=== PATIENT | female | born 1995 | race Caucasian/White ===

== ENCOUNTER → 2020-01-13 10:35 | Outpatient (CLI) | payer OTHER, SELFPAY ==
[2020-01-13 11:30] LABS: Hematocrit 42.1 % (36-46); Hemoglobin 14.2 g/dL (12.0-16.0); Mean Corpuscular HGB Conc 33.7 % (30-36); Mean Corpuscular Hemoglobin 28.5 PG (26-34); Mean Corpuscular Volume 84.6 fL (80-100); Platelet Count 306 X10^3/uL (150-400); Red Blood Cell Count 4.98 X10^6/uL (4.0-5.2); White Blood Cell Count 7.7 X10^3/uL (4.5-11.0)
[2020-01-13 11:54] LABS: Alanine Aminotransferase 30 IU/L (<35); Albumin 4.6 g/dL (3.5-5.0); Albumin Globulin Ratio 1.4 (1.0-2.8); Alkaline Phosphatase 72 U/L (38-126); Aspartate Aminotransferase 25 IU/L (14-36); Bilirubin Total 0.5 mg/dL (0.2-1.3); Blood Urea Nitrogen 6 mg/dL (7-17); Calcium 9.6 mg/dL (8.4-10.2); Carbon Dioxide 27 mmol/L (22-32); Chloride 104 mmol/L (98-107); Cholesterol 143 mg/dL (140-199); Estimated Glomerular Filt Rate > 60.0 mL/min (>60); Globulin 3.4 g/dL (1.7-4.1); Glucose 104 mg/dL (70-100); HDL Cholesterol 35 mg/dL (40-60); HEMOLYSIS < 15 (0-50); LDL Cholesterol Calculated 75 mg/dL (<100); Potassium 3.9 mmol/L (3.4-5.1); Sodium 137 mmol/L (137-145); Triglycerides 163 mg/dL (35-150)
[2020-01-13 12:24] LABS: TSH w/ Reflex to FT4 1.25 uIU/mL (0.47-4.68)
== END ==
PROVIDERS: PCP Registered Nurse Diabetes Educator; Referring Provider Registered Nurse Diabetes Educator; Visit Provider Registered Nurse Diabetes Educator
DX: E66.01 Morbid (severe) obesity due to excess calories (principal); F32.9 Major depressive disorder, single episode, unspecified; F41.9 Anxiety disorder, unspecified; F43.10 Post-traumatic stress disorder, unspecified; R03.0 Elevated blood-pressure reading, without diagnosis of hypertension
CPT/HCPCS: 36415; 80053; 80061; 84443; 85027

== ENCOUNTER → 2020-05-03 14:50 | Outpatient (CLI) | payer OTHER, SELFPAY ==
--- NOTE | 2020-05-03 14:52 | DI.RAD.S_ITS ---
PROCEDURE: XR ANKLE LT MIN 3V INDICATIONS: ankle pain TECHNIQUE: 3 views of the ankle were acquired. COMPARISON: None. FINDINGS: Bones: No fractures or dislocations. Ankle mortise is normally aligned. No suspicious bony lesions. Soft tissues: No tibiotalar joint effusion. Achilles tendon appears normal. IMPRESSION: No trauma found. Source of pain is not seen. Dictated by: Vald Horne M.D. on 05/03/2020 at 16:32 Approved by: Vlad Horne M.D. on 05/03/2020 at 16:33
== END ==
PROVIDERS: PCP Registered Nurse Diabetes Educator; Referring Provider Nurse Practitioner; Visit Provider Nurse Practitioner
DX: M25.572 Pain in left ankle and joints of left foot (principal)
CPT/HCPCS: 73610

== ENCOUNTER → 2020-05-26 08:56 | Outpatient (CLI) | payer OTHER, SELFPAY ==
[2020-05-26] MEDS: COVID-19 VACC, Ad26(JANSSEN)/PF 0.5 ML IM (09:10)
== END ==
PROVIDERS: PCP Registered Nurse Diabetes Educator; Visit Provider Internal Medicine
DX: Z23 Encounter for immunization (principal)
CPT/HCPCS: 0031A; 91303

== ENCOUNTER → 2020-09-22 10:47 | Outpatient (CLI) | payer OTHER, SELFPAY ==
--- NOTE | 2020-09-22 10:49 | DI.RAD.S_ITS ---
PROCEDURE: XR HAND RT MIN 3V INDICATIONS: right hand pain, 4th and 5th digit TECHNIQUE: 3 views of the hand(s) acquired. COMPARISON: None. FINDINGS: Bones: No fractures or dislocations. Carpal bones are normally aligned. No suspicious bony lesions. Soft tissues: No suspicious soft tissue calcifications. IMPRESSION: No acute osseous abnormality. Dictated by: Richy Hines M.D. on 09/22/2020 at 11:03 Approved by: Richy Hines M.D. on 09/22/2020 at 11:05
== END ==
PROVIDERS: PCP Registered Nurse Diabetes Educator; Referring Provider Physician Assistant; Visit Provider Physician Assistant
DX: M79.641 Pain in right hand (principal)
CPT/HCPCS: 73130

== ENCOUNTER → 2021-04-08 11:42 | Outpatient (CLI) | payer OTHER, SELFPAY ==
[2021-04-08 12:02] LABS: COVID19 -Nasal RAPID Negative (Negative)
== END ==
PROVIDERS: PCP Registered Nurse Diabetes Educator; Visit Provider Physician Assistant
DX: Z20.822 Contact with and (suspected) exposure to COVID-19 (principal)
CPT/HCPCS: 87635

== ENCOUNTER → 2022-02-14 18:12 | Outpatient (CLI) | payer OTHER, SELFPAY ==
[2022-02-14 19:33] LABS: Influenza A - CEPHEID Flu A NEGATIVE (NEGATIVE); Influenza B - CEPHEID Flu B NEGATIVE (NEGATIVE); Respiratory Syncytial Virus Negative (Negative)
[2022-02-14 20:03] LABS: COVID-19 CEPHEID 4-PLEX PCR POSITIVE (Negative)
== END ==
PROVIDERS: PCP Registered Nurse Diabetes Educator; Visit Provider Physician Assistant Medical
DX: R09.81 Nasal congestion (principal)
CPT/HCPCS: 0241U

== ENCOUNTER → 2022-11-07 12:00 | Outpatient (CLI) | payer OTHER, SELFPAY ==
[2022-11-07 12:34] LABS: Hematocrit 41.9 % (36-46); Hemoglobin 14.1 g/dL (12.0-16.0); Mean Corpuscular HGB Conc 33.7 % (30-36); Mean Corpuscular Hemoglobin 28.4 PG (26-34); Mean Corpuscular Volume 84.3 fL (80-100); Platelet Count 378 X10^3/uL (150-400); Red Blood Cell Count 4.97 X10^6/uL (4.0-5.2); Red Cell Distribution Width 13.4 % (11.6-14.8); White Blood Cell Count 9.2 X10^3/uL (4.5-11.0)
[2022-11-07 12:45] LABS: Hemoglobin A1C% w Est Avg Glu 5.5 % (4.0-6.0)
[2022-11-07 13:00] LABS: Alanine Aminotransferase 23 IU/L (<35); Albumin 4.3 g/dL (3.5-5.0); Albumin Globulin Ratio 1.2 (1.0-2.8); Alkaline Phosphatase 77 U/L (38-126); Aspartate Aminotransferase 21 IU/L (14-36); BUN Creatinine Ratio 12.1 (6-22); Bilirubin Total 0.5 mg/dL (0.2-1.3); Blood Urea Nitrogen 7 mg/dL (7-17); Calcium 9.5 mg/dL (8.4-10.2); Carbon Dioxide 27 mmol/L (22-32); Chloride 103 mmol/L (98-107); Cholesterol 192 mg/dL (140-199); Estimated Glomerular Filt Rate > 60 mL/min (>60); Globulin 3.5 g/dL (1.7-4.1); Glucose 104 mg/dL (70-100); HDL Cholesterol 35 mg/dL (40-60); HEMOLYSIS < 15 (0-50); LDL Cholesterol Calculated 108 mg/dL (<100); Potassium 4.5 mmol/L (3.4-5.1); Sodium 137 mmol/L (137-145); Total Protein 7.8 g/dL (6.3-8.2); Triglycerides 246 mg/dL (35-150)
[2022-11-07 13:16] LABS: Free T4, Direct Thyroxine 1.12 ng/dL (0.78-2.19)
[2022-11-07 13:30] LABS: Thyroid Stimulating Hormone 1.23 uIU/mL (0.47-4.68)
== END ==
PROVIDERS: PCP Registered Nurse Diabetes Educator; Referring Provider Registered Nurse Diabetes Educator; Visit Provider Registered Nurse Diabetes Educator
DX: E78.5 Hyperlipidemia, unspecified (principal); R73.01 Impaired fasting glucose; E66.01 Morbid (severe) obesity due to excess calories; E88.81 Metabolic syndrome and other insulin resistance; F32.9 Major depressive disorder, single episode, unspecified
CPT/HCPCS: 36415; 80053; 80061; 83036; 84439; 84443; 85027

== ENCOUNTER → 2023-01-16 10:54 | Outpatient (CLI) | payer OTHER, SELFPAY ==
--- NOTE | 2023-01-16 10:55 | DI.RAD.S_ITS ---
PROCEDURE: XR CHEST 2V INDICATIONS: cough >3wk concern for LLL PNA vs bronchitis TECHNIQUE: 2 views of the chest were acquired. COMPARISON: None. FINDINGS: Surgical changes and devices: None. Lungs and pleura: Lungs are clear. No pleural effusions or pneumothorax. Mediastinum: Mediastinal contours are normal. Heart size is normal. Bones and chest wall: No suspicious bony abnormalities. Soft tissues appear unremarkable. IMPRESSION: No acute cardiopulmonary abnormality is seen. Dictated by: Arik Luo M.D. on 01/16/2023 at 11:42 Approved by: Arik Lou M.D. on 01/16/2023 at 11:42
== END ==
PROVIDERS: PCP Registered Nurse Diabetes Educator; Referring Provider Student in an Organized Health Care Education/Training Program; Visit Provider Student in an Organized Health Care Education/Training Program
DX: R05.8 Other specified cough (principal)
CPT/HCPCS: 71046

== ENCOUNTER → 2023-03-16 13:04 | Outpatient (CLI) | payer OTHER, SELFPAY ==
--- NOTE | 2023-03-16 13:06 | DI.RAD.S_ITS ---
PROCEDURE: XR FOOT RT MIN 3V INDICATIONS: right foot pain over 4th/5th metatarsals TECHNIQUE: 3 views of the foot were acquired. COMPARISON: None. FINDINGS: Bones: No fractures or dislocations. No suspicious bony lesions. Soft tissues: No tibiotalar joint effusion. Achilles tendon appears normal. IMPRESSION: No acute bony abnormality. Dictated by: Vlad Horne M.D. on 03/16/2023 at 13:33 Approved by: Vlad Horne M.D. on 03/16/2023 at 13:33
== END ==
PROVIDERS: PCP Registered Nurse Diabetes Educator; Referring Provider Physician Assistant; Visit Provider Physician Assistant
DX: M79.671 Pain in right foot (principal)
CPT/HCPCS: 73630

== ENCOUNTER → 2023-07-11 16:03 | Outpatient (CLI) | payer OTHER, SELFPAY ==
--- NOTE | 2023-07-13 14:46 | DIET.OUTPTC ---
Dietary Outpatient Consultation Note Consultation Date: 07/11/2023 Assessment: 27 y F referred to dietitian for impaired fasting glucose, HLD, BMI 50.0-59.9, metabolic syndrome. Bonnie is wanting help with weight management for prevention of diabetes and heart health. Reports struggling with her relationship with food since middle school, has attempted different eating patterns before for weight loss, but difficulty to maintain them. 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 Her and get take out 3-5x/wk for dinner. She eats familiar foods and has difficulty trying new foods due to avoidance of certain texture of foods. Diet recall: Breakfast: Redbull with flavored syrup juice and bagel with butter from [employer] Lunch: often skips Dinner: takeout (ex- pizza) Sometimes snack: various items Beverages: has been keeping regular sodas in house she drinks -varied amount daily 1+ can, gets regular soda when getting takeout Drinks whole milk, multiple glasses at night - varies how many daily Various juices depending on grocery shopping purchases Ice water GI symptoms: Denies N/V/C, experiences soft or liquid stools with dairy and leafy greens and will have incidences of diarrhea monthly that she cannot correlate to a certain food. Acid reflux at night occasionally. Ht: 167.64 cm Wt: 166.072 kg BMI: 59.1 Weight hx: 05/02/23: 169.757 kg 01/16/23: 161.621 kg 08/23/22: 166.015 kg Lab Values: On 11/07/22; she is going to get updated labs before next visit A1c: 5.5% Glucose, fastin mg/dL T chol 192 LDL: 108 HDL 35 Nutrition Diagnosis: Excessive energy intake r/t energy dense over nutrient dense food selections as evidenced by diet recall with sugar sweetened beverages and takeout 3-5 x/wk Interventions: 1. MNT for impaired fasting glucose, HLD, weight management -including: balanced meals, lab value meanings, macros, and label reading Goals: 1. Eliminate sugar sweetened beverages (except redbull), juices, and reduce milk to 3 glasses in 1 day or less by asking to not buy soda or place soda in room, out of sight. Increase water intake by bringing hydroflask with ice water to work by setting on top of work purse. 2. Plan 1 meal a day/week of a simple recipe to try by planning and going grocery shopping on Sunday with Monitoring/Evaluations: goals, diet recall, f/u in 1 month Electronically Signed by: Lisa Andrew 07/13/23 14:46 Clinical Dietitian [address] [address]
== END ==
PROVIDERS: PCP Registered Nurse Diabetes Educator; Referring Provider Registered Nurse Diabetes Educator
DX: R73.01 Impaired fasting glucose (principal); E78.5 Hyperlipidemia, unspecified; E88.810 Metabolic syndrome; E88.818 Other insulin resistance; R03.0 Elevated blood-pressure reading, without diagnosis of hypertension; Z68.43 Body mass index [BMI] 50.0-59.9, adult; Z71.3 Dietary counseling and surveillance
CPT/HCPCS: 97802

== ENCOUNTER → 2023-10-10 11:55 | Outpatient (CLI) | payer OTHER, SELFPAY ==
[2023-10-10 13:12] LABS: Hematocrit 39.1 % (36-46); Hemoglobin 13.4 g/dL (12.0-16.0); Mean Corpuscular HGB Conc 34.3 % (30-36); Mean Corpuscular Hemoglobin 28.9 PG (26-34); Mean Corpuscular Volume 84.3 fL (80-100); Platelet Count 317 X10^3/uL (150-400); Red Blood Cell Count 4.64 X10^6/uL (4.0-5.2); Red Cell Distribution Width 13.1 % (11.6-14.8); White Blood Cell Count 7.8 X10^3/uL (4.5-11.0)
[2023-10-10 13:38] LABS: Alanine Aminotransferase 40 IU/L (<35); Albumin 4.3 g/dL (3.5-5.0); Albumin Globulin Ratio 1.5 (1.0-2.8); Alkaline Phosphatase 86 U/L (38-126); Aspartate Aminotransferase 33 IU/L (14-36); BUN Creatinine Ratio 12.7 (6-22); Bilirubin Total 0.4 mg/dL (0.2-1.3); Blood Urea Nitrogen 8 mg/dL (7-17); Calcium 9.1 mg/dL (8.4-10.2); Carbon Dioxide 25 mmol/L (22-32); Chloride 103 mmol/L (98-107); Cholesterol 191 mg/dL (140-199); Estimated Glomerular Filt Rate > 60 mL/min (>60); Globulin 2.8 g/dL (1.7-4.1); Glucose 120 mg/dL (70-100); HDL Cholesterol 38 mg/dL (40-60); HEMOLYSIS < 15 (0-50); LDL Cholesterol Calculated 113 mg/dL (<100); Potassium 4.4 mmol/L (3.4-5.1); Sodium 138 mmol/L (137-145); Total Protein 7.1 g/dL (6.3-8.2); Triglycerides 199 mg/dL (35-150)
[2023-10-10 13:45] LABS: Hemoglobin A1C% w Est Avg Glu 6.4 % (4.0-6.0)
[2023-10-10 14:01] LABS: TSH w/ Reflex to FT4 1.37 uIU/mL (0.47-4.68)
== END ==
PROVIDERS: PCP Registered Nurse Diabetes Educator; Referring Provider Registered Nurse Diabetes Educator; Visit Provider Registered Nurse Diabetes Educator
DX: E78.5 Hyperlipidemia, unspecified (principal); R73.01 Impaired fasting glucose; R03.0 Elevated blood-pressure reading, without diagnosis of hypertension; E88.810 Metabolic syndrome
CPT/HCPCS: 36415; 80053; 80061; 83036; 84443; 85027

== ENCOUNTER → 2023-10-11 14:26 | Outpatient (CLI) | payer OTHER, SELFPAY ==
--- NOTE | 2023-10-12 11:09 | DIET.OUTPTC ---
Dietary Outpatient Consultation Note Consultation Date: 10/11/2023 Nutrition f/u Assessment: 28 y F referred to dietitian for impaired fasting glucose, HLD, BMI 50.0-59.9, metabolic syndrome. Recent labs with A1c (6.4%) indicative of prediabetes. Bonnie continues making sustainable changes. Is drinking 64-96 oz water/day, added protein to breakfast and lunch, is using lower fat dairy products, adjusting/planning for choosing whole grains (pedro or whole wheat pasta over white, kiran's killer bread over white) has been using hunger/fullness scale throughout day and out to eat, is working to have 2 fruits and 2 vegetables daily, ordering smaller sizes when at fast food, planning physical activity. Has started tracking macros with [employer]. Avg 47% CHO, 39% fat, 14% PRO. Protein 90-130 g/day. 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 Pt is considering weight loss medications, discussed talking with PCP at next visit. Beverages: ice water, 1 Redbull + syrup/d Ht: 167.64 cm Wt: 166.072 kg BMI: 59.1 Activity: 20 minutes weighted hula hoop, pool laps 1x/wk, considering walking on treadmill in home Weight hx: 05/02/23: 169.757 kg 01/16/23: 161.621 kg 08/23/22: 166.015 kg Lab Values: On 10/10/23 A1c: 6.4% Glucose, fastin mg/dL T chol 191 LDL: 113 HDL 38 Nutrition Diagnosis: Altered nutrition related lab values (A1c) r/t endocrine dysfunction aeb A1c 6.4% on 10/10/23 Interventions: 1. Reviewed pre-DM and nutrition (balanced meals, macros, SFAs vs MUFAs/PUFAs, portion sizing, fiber, activity) 2. Encouraged continuation of patient's current progress 3. Educ on protein needs, reviewed protein sources Goals: 1. Maintaining consistent breakfast/lunch w/ multiple, realistic breakfast/lunch options during school year 2. Working towards 150 minutes activity/wk with start of weighted hula hoop and consideration of treadmill walking during weekdays 15-30 minutes 3. Dinner swaps for whole grain options 4. Balanced evening snacks -fiber+protein Monitoring/Evaluations: goals, labs, diet recall, f/u in 1 month Electronically Signed by: Lisa Andrew 10/12/23 11:09 Clinical Dietitian [address] [address]
== END ==
PROVIDERS: PCP Registered Nurse Diabetes Educator; Referring Provider Registered Nurse Diabetes Educator
DX: E88.810 Metabolic syndrome (principal); E88.818 Other insulin resistance; E78.5 Hyperlipidemia, unspecified; R03.0 Elevated blood-pressure reading, without diagnosis of hypertension; Z68.43 Body mass index [BMI] 50.0-59.9, adult; Z71.3 Dietary counseling and surveillance
CPT/HCPCS: 97803

== ENCOUNTER → 2023-11-08 13:56 | Outpatient (CLI) | payer OTHER, SELFPAY ==
--- NOTE | 2023-11-13 15:07 | DIET.PN1 ---
Dietary Progress Note Nutrition f/u on 11/08/23 Assessment: 28 y F referred to dietitian for impaired fasting glucose, HLD, BMI 50.0-59.9, metabolic syndrome. Recent labs with A1c (6.4%) indicative of prediabetes. Bonnie continues lifestyle changes noted at previous visit. Has questions regarding macro distribution. Is tracking with [employer]. Caloric goal set at 2300. Pt noted she intakes higher than recc amount of saturated fat, contributes this to cheese consumption. Other concerns discussed today include: -continuing with habits during the school year- has noted times not taking lunch due busy work schedule -sometimes struggling with overeating post dinner Ht: 167.64 cm Wt: 166.072 kg BMI: 59.1 Weight hx: 05/02/23: 169.757 kg 01/16/23: 161.621 kg 08/23/22: 166.015 kg Interventions: 1. Discussed topics such as macronutrient distribution and fiber goals -less than 10% of calories from saturated fat, 25-28 g fiber, 45-50% of calorie carbs Goals: 1. Lunch radha to support taking a lunch break 2. Plan for balanced snack post dinner, limit/avoid checking myfitnesspal in evening 3. Switch to light string cheese for reduced sat fat content Monitoring/Evaluations: goals, labs, diet recall, f/u in 5-6 months Electronically Signed by: Lisa Andrew 11/13/23 15:07 Clinical Dietitian [address] [address]
== END ==
LOC: DIET 13:56
PROVIDERS: PCP Registered Nurse Diabetes Educator; Referring Provider Registered Nurse Diabetes Educator
DX: R73.01 Impaired fasting glucose (principal); E78.5 Hyperlipidemia, unspecified; E88.810 Metabolic syndrome; Z71.3 Dietary counseling and surveillance; Z68.43 Body mass index [BMI] 50.0-59.9, adult
CPT/HCPCS: 97803

== ENCOUNTER → 2024-03-08 12:21 | Outpatient (CLI) | payer OTHER, SELFPAY ==
[2024-03-08 13:42] LABS: Alanine Aminotransferase 19 IU/L (<35); Albumin 4.1 g/dL (3.5-5.0); Albumin Globulin Ratio 1.5 (1.0-2.8); Alkaline Phosphatase 80 U/L (38-126); Aspartate Aminotransferase 20 IU/L (14-36); Bilirubin Total 0.5 mg/dL (0.2-1.3); Bilirubin Unconjugated 0.3 mg/dL (0.0-1.1); Cholesterol 169 mg/dL (140-199); Globulin 2.7 g/dL (1.7-4.1); Glucose 107 mg/dL (70-100); HDL Cholesterol 47 mg/dL (40-60); HEMOLYSIS < 15 (0-50); LDL Cholesterol Calculated 86 mg/dL (<100); Total Protein 6.8 g/dL (6.3-8.2); Triglycerides 180 mg/dL (35-150)
== END ==
LOC: LAB 12:25
PROVIDERS: PCP Registered Nurse Diabetes Educator; Referring Provider Registered Nurse Diabetes Educator; Visit Provider Registered Nurse Diabetes Educator
DX: E78.5 Hyperlipidemia, unspecified (principal); R73.01 Impaired fasting glucose; R74.8 Abnormal levels of other serum enzymes
CPT/HCPCS: 36415; 80061; 80076; 82947; 83036

== ENCOUNTER → 2024-05-15 12:53 | Outpatient (CLI) | payer OTHER, SELFPAY ==
--- NOTE | 2024-05-15 16:14 | DIET.CONS ---
Dietary Consultation Note Admission Date: Assessment: 28 y F referred to dietitian for impaired fasting glucose, HLD, BMI 50.0-59.9, metabolic syndrome. Recent labs with A1c (6.0%) indicative of prediabetes. Presents for f/u. Reports stressful last few months, since beginning of new year. Is looking to get back on track and navigate lifestyle changes with added life stress. Wants to: increase activity, increase fruit and veg intake, cook 1-2 meals from home (needs to find a recipe that can easily create and can repeat it weekly) and focus on water intake. Currently walking 1x/wk, around 1 hour. Will still implement hunger/fullness scale when out to eat sometimes. Has continued reduces sugar sweetened beverage intake (does 1 redbull per day), but last 2 weeks has started drinking soda again. Feels this will no longer be a problem as her preferred sodas are gone from house now. Has Rx for Zepbound, waiting for insurance auth. Improvement in labs from 10/09 to 03/11: 6.4% a1c to 6.0%. Weight hx: 03/10/24: 167.999 kg 12/11/23: 162.046 kg 05/02/23: 169.757 kg 01/16/23: 161.621 kg 08/23/22: 166.015 kg Interventions: 1. Discussed goals and barriers, providing [place] counseling Goals: 1. Add in 1 more walk per week, walking with aunt or friends to hold self accountable 2. Focus on getting adequate fiber intake with 5 fruits and vegetables per day by creating grocery store list weekly 3. Familiarizing self with 1-2 recipes per week with food delivery service (i.e. [employer]), using nutrition label reading skills from previous sessions 4. Bring hydroflask back home to refill with ice water to increase water intake during workday Monitoring/Evaluations: f/u 6 wks Electronically Signed by: Lisa Andrew 05/15/24 16:14 Clinical Dietitian [address] [id number]
== END ==
PROVIDERS: PCP Registered Nurse Diabetes Educator; Referring Provider Registered Nurse Diabetes Educator
DX: E88.810 Metabolic syndrome (principal); E78.5 Hyperlipidemia, unspecified; Z68.43 Body mass index [BMI] 50.0-59.9, adult; Z71.3 Dietary counseling and surveillance
CPT/HCPCS: 97803

== ENCOUNTER → 2024-06-25 12:56 | Outpatient (CLI) | payer OTHER, SELFPAY ==
--- NOTE | 2024-06-26 13:11 | DIET.OUTPTC ---
Dietary Outpatient Consultation Note Consultation Date: 06/25/2024 Assessment: 28 y F referred to dietitian for impaired fasting glucose, HLD, BMI 50.0-59.9, metabolic syndrome. Recent labs with A1c (6.0%) indicative of prediabetes. Presents for f/u. Reports successes with: meal prep delivery service to help reduce doordashing food (takes 10 mins or less) which has been helpful, along with a few cooking and recipe organization apps, in familiarizing self with cooking, eliminating sugar sweetened beverages again, making food swaps for lower calorie/lower sugar snacks, when hungry between meals assessing hunger level and portion sizing snacks and pairing, having water available around house to help fluid intake. Reports some difficulties with persistent food noise. Reports 1 incident of planned binge eating that may be r/t stress from work week. Reports sometimes forgetting lunch or not having time to eat or not wanting leftovers brought. Has Rx for Zepbound, waiting for insurance auth. Improvement in labs from 10/09 to 03/11: 6.4% a1c to 6.0%. Weight hx: 03/10/24: 167.999 kg 12/11/23: 162.046 kg 05/02/23: 169.757 kg 01/16/23: 161.621 kg 08/23/22: 166.015 kg Interventions: 1. Discussed goals and barriers, providing [place] counseling Goals: 1. Add in 1 more walk per week, walking with aunt or friends to hold self accountable -not discussed this session, revisit at next session 2. Bring fruit, cheese, baby carrots, and turkey meat sticks to work as option for lunch in case of low time, forgetting lunch, or not liking option brought 3. Having consistent meals and if pt identifies they are planning a binge using alternative stress relievers like coloring w/ snack as needed to help prevent binge - discuss further with therapist 4. Encouraged pt to discuss with therapist on helpful ways to coop with planned binge thoughts and self talk 5. Continue with successes listed above in assessment Monitoring/Evaluations: f/u 6 wks Electronically Signed by: Lisa Andrew 06/26/24 13:11 Clinical Dietitian [address] [address]
== END ==
PROVIDERS: PCP Registered Nurse Diabetes Educator; Referring Provider Registered Nurse Diabetes Educator
DX: E78.5 Hyperlipidemia, unspecified (principal); E88.810 Metabolic syndrome; R03.0 Elevated blood-pressure reading, without diagnosis of hypertension; Z68.43 Body mass index [BMI] 50.0-59.9, adult
CPT/HCPCS: 97803

== ENCOUNTER → 2024-07-23 16:23 | Outpatient (CLI) | payer OTHER, SELFPAY ==
--- NOTE | 2024-07-28 13:41 | DIET.OUTPTC ---
Dietary Outpatient Consultation Note Consultation Date: 07/23/2024 Assessment: 28 y F referred to dietitian for impaired fasting glucose, HLD, BMI 50.0-59.9, metabolic syndrome. Recent labs with A1c (6.0%) indicative of prediabetes. Presents for f/u. Reports moving away from meal delivery service d/t being busy with work, pt finds it difficult to cook them if just her. Has been doing easier dinner meals (i.e. collection of different snacks like cheese and crackers). However since there are no leftovers anymore, hasn't been packing lunch as often. This then leads to skipping lunch and being very hungry when getting home and making eating balanced meals more difficult. Reports that using alternative stress relievers like coloring have been somewhat helpful. 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 Unable to get Zepbound approved by insurance, thus doing phentermine and topiramate. At last PCP appt pt dx with moderate binge eating disorder. Needs more time on medication to determine whether this has be helpful in reducing food noise. Weight hx: 07/09/24: 166.979 kg 03/10/24: 167.999 kg 12/11/23: 162.046 kg 05/02/23: 169.757 kg 01/16/23: 161.621 kg 08/23/22: 166.015 kg Interventions: 1. Discussed goals and barriers around consistent meal intake to help with making balanced meal choices, providing [place] counseling 2. Provided journal resource prompts from RD blog nutrition by christina for mindful eating and body image and reviewed components of intuitive eating Goals: 1. Add in 1 more walk per week, walking with aunt or friends to hold self accountable -not discussed this session, revisit at next session 2. Pack sandwich and fruit/yogurt/carrots and/or cheese for lunch 3. Pair dinner meals with fiber source like snap peas and carrots Monitoring/Evaluations: f/u 6 wks Electronically Signed by: Lisa Andrew 07/28/24 13:41 Clinical Dietitian [address] [id number]
== END ==
PROVIDERS: PCP Registered Nurse Diabetes Educator
DX: E78.5 Hyperlipidemia, unspecified (principal); E88.810 Metabolic syndrome; Z68.43 Body mass index [BMI] 50.0-59.9, adult; Z71.3 Dietary counseling and surveillance
CPT/HCPCS: 97803

== ENCOUNTER → 2024-07-25 17:05 | Outpatient (CLI) | payer OTHER, SELFPAY ==
[2024-07-25 17:57] LABS: Influenza A - CEPHEID Flu A NEGATIVE (NEGATIVE); Influenza B - CEPHEID Flu B NEGATIVE (NEGATIVE); Respiratory Syncytial Virus Negative (Negative)
[2024-07-25 18:12] LABS: COVID-19 CEPHEID 4-PLEX PCR Negative (Negative)
== END ==
PROVIDERS: PCP Registered Nurse Diabetes Educator; Visit Provider Nurse Practitioner Family
DX: J02.9 Acute pharyngitis, unspecified (principal); R05.1 Acute cough
CPT/HCPCS: 0241U; 87070; 87147

== ENCOUNTER → 2024-09-27 12:00 | Outpatient (CLI) | payer OTHER, SELFPAY ==
[2024-09-27 13:23] LABS: Blood Urea Nitrogen 8 mg/dL (7-17); Calcium 9.3 mg/dL (8.4-10.2); Carbon Dioxide 25 mmol/L (22-32); Chloride 102 mmol/L (98-107); Estimated Glomerular Filt Rate > 60 mL/min (>60); Glucose 114 mg/dL (70-99); HEMOLYSIS < 15 (0-50); Potassium 4.0 mmol/L (3.4-5.1); Sodium 136 mmol/L (137-145)
== END ==
PROVIDERS: PCP Registered Nurse Diabetes Educator; Referring Provider Registered Nurse Diabetes Educator; Visit Provider Registered Nurse Diabetes Educator
DX: Z51.81 Encounter for therapeutic drug level monitoring (principal); E66.01 Morbid (severe) obesity due to excess calories
CPT/HCPCS: 36415; 80048